=== PATIENT | female | born 1990 | race Caucasian/White ===

== ENCOUNTER 2016-12-23 19:55 | Emergency (ER) | payer BC, MEDICAID ==
[2016-12-23 20:26] LABS: UR Preg Internal Control QC Line Present
[2016-12-23 20:28] LABS: Urine Bacteria Absent (Absent); Urine Bilirubin Negative (Negative); Urine Glucose Negative (Negative); Urine Nitrite Negative (Negative)
[2016-12-23] MEDS ORDERED: NS 0.9% 1000 ML* 2,000 ML IV ONE (21:11)
[2016-12-23] MEDS ORDERED: LORazepam INJ* 2 MG/ML 1 ML VIAL IV PUSH ONE (21:12)
[2016-12-23 22:01] LABS: Hematocrit 49 % (35-47); Hemoglobin 17.1 g/dl (12.0-16.0); Mean Corpuscular HGB Conc 35 g/dl (31-36); Mean Corpuscular Hemoglobin 32 pg (27-31); Mean Corpuscular Volume 92 fL (80-97); Mean Platelet Volume 9 um3 (7.4-10.4); Red Blood Count 5.36 10^6/ul (4.0-5.4); Red Cell Distribution Width 13 % (10.5-15); White Blood Count 12.9 10^3/ul (3.5-10.8)
[2016-12-23 22:17] LABS: ALT 10 U/L (7-52); AST 15 U/L (13-39); Albumin 4.5 g/dL (3.2-5.2); Alkaline Phosphatase 45 U/L (34-104); Anion Gap 4 mmol/L (2-11); BUN/Creatinine Ratio 9.7 (8-20); Blood Urea Nitrogen 7 mg/dL (6-24); CO2 Carbon Dioxide 27 mmol/L (22-32); Calcium 9.7 mg/dL (8.6-10.3); Chloride 104 mmol/L (101-111); EGFR African American 125.9 (>60); EGFR Non-African American 97.9 (>60); Globulin 2.8 g/dL (2-4); Glucose 106 mg/dL (70-100); Potassium 3.2 mmol/L (3.5-5.0); Sodium 135 mmol/L (133-145); Total Protein 7.3 g/dL (6.4-8.9)
[2016-12-23 22:59] VITALS: BP 108/61
--- NOTE | 2016-12-24 00:24 | ED ---
Psychiatric Complaint - HPI Summary HPI Summary: Patient presents to ED after experiencing hyperventilation symptoms from an anxiety attack a few hours ago. She states she began to think about becoming dehydrated d/t a recent illness and passing out as she did 10 years ago. D/t this she had an anxiety attack and felt like she was unable to breathe. On arrival, she is stable but tearful for fear this will happen again. She denies an official diagnosis of anxiety and takes no medications. She is requesting for fluid replacement d/t her recent viral illness which caused some N/V. Otherwise, does not want medications as she is afraid of them. Denies other significant health history. - History Of Current Complaint Chief Complaint: EDNauseaVomitDiarrh Time Seen by Provider: 12/23/16 20:28 Hx Obtained From: Patient ?: No Onset/Duration: Sudden Onset Timing: Minutes Severity Initially: Severe Severity Currently: None Character: Anxious Alleviating Factor(s): Nothing Associated Signs And Symptoms: Positive: Appetite Change, Social Withdrawal, Social Isolation Related History: Positive For: Prior Psychiatric Issues - Risk Factor(s) Completed Suicide Risk Factors: White [place] - Allergies/Home Medications Allergies/Adverse Reactions: Allergies Allergy/AdvReac Type Severity Reaction Status Date / Time No Known Allergies Allergy Verified 12/23/16 20:13 PMH/Surg Hx/FS Hx/Imm Hx Previously Healthy: Yes Endocrine/Hematology History: Reports: Hx Thyroid Disease - elevated TSH, no meds Infectious Disease History: No Infectious Disease History: Denies: Traveled Outside the [place] in Last 30 Days - Social History Occupation: Employed Full-time Lives: With Family Alcohol Use: None Hx Substance Use: No Substance Use Type: Reports: None Hx Tobacco Use: Yes Smoking Status (MU): Light Every Day Tobacco Smoker Type: Cigarettes Review of Systems Constitutional: Negative ENT: Negative Cardiovascular: Negative Positive: Shortness Of Breath - only during hyperventilation Positive: no symptoms reported, see HPI Musculoskeletal: Negative Skin: Negative Neurological: Negative Positive: Anxious All Other Systems Reviewed And Are Negative: Yes Physical Exam Triage Information Reviewed: Yes Vital Signs On Initial Exam: Initial Vitals Temp Pulse Resp BP Pulse Ox 98.4 F 99 16 133/82 100 12/23/16 20:01 12/23/16 20:01 12/23/16 20:01 12/23/16 20:01 12/23/16 20:01 Vital Signs Reviewed: Yes Appearance: Positive: Well-Appearing, Well-Nourished Skin: Positive: Warm, Skin Color Reflects Adequate Perfusion Head/Face: Positive: Normal Head/Face Inspection Eyes: Positive: EOMI, Conjunctiva Clear Dental: Positive: Abscess @ Neck: Positive: Nontender Respiratory/Lung Sounds: Positive: Clear to Auscultation, Breath Sounds Present Cardiovascular: Positive: RRR Musculoskeletal: Positive: Normal, Strength/ROM Intact Neurological: Positive: Sensory/Motor Intact, Alert, Oriented to Person Place, Time Psychiatric: Positive: Normal AVPU Assessment: Alert - [place] Coma Scale Coma Scale Total: 15 Diagnostics - Vital Signs Vital Signs Temp Pulse Resp BP Pulse Ox 12/23/16 22:58 98 F 82 16 108/61 98 12/23/16 21:49 20 12/23/16 20:01 98.4 F 99 16 133/82 100 - Laboratory Lab Results: Lab Results 12/23/16 12/23/16 12/23/16 Range/Units 20:12 20:12 21:50 WBC (3.5-10.8) 10^3/ul RBC (4.0-5.4) 10^6/ul Hgb (12.0-16.0) g/dl Hct (35-47) % MCV (80-97) fL MCH (27-31) pg MCHC (31-36) g/dl RDW (10.5-15) % Plt Count (150-450) 10^3/ul MPV (7.4-10.4) um3 Neut % (Auto) (38-83) % Lymph % (Auto) (25-47) % Benson % (Auto) (1-9) % Eos % (Auto) (0-6) % Baso % (Auto) (0-2) % Absolute Neuts (auto) (1.5-7.7) 10^3/ul Absolute Lymphs (auto) (1.0-4.8) 10^3/ul Absolute Monos (auto) (0-0.8) 10^3/ul Absolute Eos (auto) (0-0.6) 10^3/ul Absolute Basos (auto) (0-0.2) 10^3/ul Absolute Nucleated RBC 10^3/ul Nucleated RBC % Sodium 135 (133-145) mmol/L Potassium 3.2 L (3.5-5.0) mmol/L Chloride 104 (101-111) mmol/L Carbon Dioxide 27 (22-32) mmol/L Anion Gap 4 (2-11) mmol/L BUN 7 (6-24) mg/dL Creatinine 0.72 (0.51-0.95) mg/dL Est GFR ( Amer) 125.9 (>60) Est GFR (Non-Af Amer) 97.9 (>60) BUN/Creatinine Ratio 9.7 (8-20) Glucose 106 H (70-100) mg/dL Calcium 9.7 (8.6-10.3) mg/dL Total Bilirubin 0.50 (0.2-1.0) mg/dL AST 15 (13-39) U/L ALT 10 (7-52) U/L Alkaline Phosphatase 45 (34-104) U/L Total Protein 7.3 (6.4-8.9) g/dL Albumin 4.5 (3.2-5.2) g/dL Globulin 2.8 (2-4) g/dL Albumin/Globulin Ratio 1.6 (1-3) Beta HCG, Quant < 0.60 mIU/mL Urine Color Colorless Urine Appearance Clear Urine pH 7.0 (5-9) Ur Specific [place] 1.001 L (1.010-1.030) Urine Protein Negative (Negative) Urine Ketones Negative (Negative) Urine Blood 1+ H (Negative) Urine Nitrate Negative (Negative) Urine Bilirubin Negative (Negative) Urine Urobilinogen Negative (Negative) Ur Leukocyte Esterase Negative (Negative) Urine WBC (Auto) Trace(0-5/hpf) (Absent) Urine RBC (Auto) Trace(0-2/hpf) (Absent) Urine Bacteria Absent (Absent) Urine Glucose Negative (Negative) Urine Test Negative (Negative) 12/23/16 Range/Units 21:50 WBC 12.9 H (3.5-10.8) 10^3/ul RBC 5.36 (4.0-5.4) 10^6/ul Hgb 17.1 H (12.0-16.0) g/dl Hct 49 H (35-47) % MCV 92 (80-97) fL MCH 32 H (27-31) pg MCHC 35 (31-36) g/dl RDW 13 (10.5-15) % Plt Count 203 (150-450) 10^3/ul MPV 9 (7.4-10.4) um3 Neut % (Auto) 81.7 (38-83) % Lymph % (Auto) 13.0 L (25-47) % Benson % (Auto) 4.8 (1-9) % Eos % (Auto) 0.2 (0-6) % Baso % (Auto) 0.3 (0-2) % Absolute Neuts (auto) 10.5 H (1.5-7.7) 10^3/ul Absolute Lymphs (auto) 1.7 (1.0-4.8) 10^3/ul Absolute Monos (auto) 0.6 (0-0.8) 10^3/ul Absolute Eos (auto) 0 (0-0.6) 10^3/ul Absolute Basos (auto) 0 (0-0.2) 10^3/ul Absolute Nucleated RBC 0.01 10^3/ul Nucleated RBC % 0 Sodium (133-145) mmol/L Potassium (3.5-5.0) mmol/L Chloride (101-111) mmol/L Carbon Dioxide (22-32) mmol/L Anion Gap (2-11) mmol/L BUN (6-24) mg/dL Creatinine (0.51-0.95) mg/dL Est GFR ( Amer) (>60) Est GFR (Non-Af Amer) (>60) BUN/Creatinine Ratio (8-20) Glucose (70-100) mg/dL Calcium (8.6-10.3) mg/dL Total Bilirubin (0.2-1.0) mg/dL AST (13-39) U/L ALT (7-52) U/L Alkaline Phosphatase (34-104) U/L Total Protein (6.4-8.9) g/dL Albumin (3.2-5.2) g/dL Globulin (2-4) g/dL Albumin/Globulin Ratio (1-3) Beta HCG, Quant mIU/mL Urine Color Urine Appearance Urine pH (5-9) Ur Specific [place] (1.010-1.030) Urine Protein (Negative) Urine Ketones (Negative) Urine Blood (Negative) Urine Nitrate (Negative) Urine Bilirubin (Negative) Urine Urobilinogen (Negative) Ur Leukocyte Esterase (Negative) Urine WBC (Auto) (Absent) Urine RBC (Auto) (Absent) Urine Bacteria (Absent) Urine Glucose (Negative) Urine Test (Negative) Result Diagrams: 12/23/16 21:50 12/23/16 21:50 Lab Statement: Any lab studies that have been ordered have been reviewed, and results considered in the medical decision making process. Course/Dx - Course Course Of Treatment: Sobbing upon arrival d/t social anxiety. Patient encouraged to take the ativan to relieve anxiety. Patient agrees. Patient improved after medication. Patient given fluids and labs WNL. Patient OK for discharge with ativan rx. Will follow up with PCP. - Differential Dx/Clinical Impression Differential Diagnosis/HQI/PQRI: Positive: Anxiety, Depression, Other - hyperventilation, social anxiety Provider Diagnosis: Anxiety, Hyperventilating Discharge - Discharge Plan Condition: Stable Disposition: HOME Prescriptions: Lorazepam [Ativan 1 MG TAB] 1 mg PO Q6H #12 tab MDD 4 Patient Education Materials: Hyperventilation (ED), Anxiety (ED) Referrals: Non Staff,Doctor [Primary Care Provider] - Additional Instructions: Follow up with your PCP regarding anxiety symptoms Drink plenty of fluids. Supplement with gatorade if you feel you are unable to drink enough fluids. Introduce foods back into your diet such as crackers, soups, breads and rice. Come back to ED for worsening anxiety.
== END 2016-12-23 23:39 | disposition home or self-care (01) ==
LOC: ED 19:55
DX: F41.9 Anxiety disorder, unspecified (principal); R06.4 Hyperventilation; F17.210 Nicotine dependence, cigarettes, uncomplicated
CPT/HCPCS: 36415; 80053; 81003; 81015; 81025; 84702; 85025; 96374; 99283; J2060

== ENCOUNTER 2019-07-14 09:12 | Emergency (ER) | payer MEDICAID, OTHER ==
[2019-07-14 09:28] VITALS: BP 127/79
--- NOTE | 2019-07-14 09:48 | UC ---
Cardiac HPI - HPI Summary HPI Summary: Chest pain with deep breathes and 'pressing' started yesterday. Was recently ill a few days ago w/ URI. Has had this before. denies sob, dizziness, calf pain. does not use control pills. - History of Current Complaint Chief Complaint: UCChestPain Stated Complaint: CHEST PAIN Time Seen by Provider: 07/14/19 09:16 Hx Obtained From: Patient Hx Last Menstrual Period: 07/11/19 Onset/Duration: Sudden Onset Pain Intensity: 6 Chest Pain Location: Lower Sternal Character: Sharp/Stabbing Aggravating Factor(s): Position, Deep Breaths Associated Signs & Symptoms: Positive: Cough - Allergy/Home Medications Allergies/Adverse Reactions: Allergies Allergy/AdvReac Type Severity Reaction Status Date / Time Opioids - Morphine Analogues Allergy Itching Verified 07/14/19 09:28 Home Medications: Home Medications NK [No Home Medications Reported] 07/14/19 [History Confirmed 07/14/19] PMH/Surg Hx/FS Hx/Imm Hx - Additional Past Medical History Additional PMH: chronic urticaria. Previously Healthy: Yes - Surgical History Surgical History: Yes Surgery Procedure, Year, and Place: csection x 2 - Social History Alcohol Use: Occasionally Substance Use Type: None Smoking Status (MU): Light Every Day Tobacco Smoker Type: Cigarettes - Immunization History Most Recent Influenza Vaccination: 07/08/14 Most Recent Tetanus Shot: 09/15/14 Most Recent Pneumonia Vaccination: none Review of Systems All Other Systems Reviewed And Are Negative: Yes Constitutional: Negative: Fever, Fatigue Respiratory: Positive: Cough. Negative: Shortness Of Breath Cardiovascular: Positive: Chest Pain Physical Exam Triage Information Reviewed: Yes Appearance: Well-Appearing Vital Signs: Initial Vital Signs Temp 98.4 F 07/14/19 09:20 Pulse 86 07/14/19 09:20 Resp 20 07/14/19 09:20 BP 127/79 07/14/19 09:20 Pulse Ox 98 07/14/19 09:20 Vital Signs Reviewed: Yes Neck: Positive: Supple Respiratory: Positive: Normal breath sounds, No respiratory distress, Other: - + reproducible tenderness at lower sternum Cardiovascular Exam: Normal Abdomen Description: Positive: Nontender, Soft Neurological: Positive: Alert, Other: - normal speech Diagnostics - EKG Cardiac Rate: NL Cardiac Rhythm: Sinus: Normal ST Segment: Normal - Assessment/Plan Course Of Treatment: Reproducible lwoer sternal tenderness after having URI. 2nd episode , has had before. Vitals are good and exam did show reproducibility. EKG was not concerning, reviewed w/ Dr. Barahona. nsaids for pain for the next 5-7 days. Increase fluids. Go to ED if worsening. - Differential Diagnoses - Chest Pain Differential Diagnosis/HQI/PQRI: Other: - Differential Diagnoses - Hypertension Differential Diagnosis/HQI PQRI: Other - Clinical Impression Provider Diagnosis: Chest wall tenderness Discharge ED - Sign-Out/Discharge Documenting (check all that apply): Patient Departure All imaging exams completed and their final reports reviewed: No Studies - Discharge Plan Condition: Good Disposition: HOME Patient Education Materials: Costochondritis (ED) Referrals: Alonso Gutiérrez MD [Primary Care Provider] - Additional Instructions: Use your ibuprofen at home to help with the inflammation - Billing Disposition and Condition Condition: GOOD Disposition: Home
== END 2019-07-14 09:40 | disposition home or self-care (01) ==
LOC: UCEAST 09:12
DX: R07.89 Other chest pain (principal); L50.8 Other urticaria; F17.210 Nicotine dependence, cigarettes, uncomplicated; R05 Cough; Z88.5 Allergy status to narcotic agent
CPT/HCPCS: 93005; 99211; G0463

== ENCOUNTER 2023-05-02 07:34 | Observation (INO) ==
[2023-05-02] MEDS ORDERED: cefTRIAXone 1 gm/50 mL D5W 1 GM/50 ML BAG IV ONE ×3 (08:03→12:01)
[2023-05-02] MEDS ORDERED: Ondansetron 4 mg VIAL 2 MG/ML 2 ml VIAL IV ONE ×2 (08:04→13:54)
[2023-05-02] MEDS ORDERED: Lactated Ringers 1000 ml BAG 1,000 ML IV ONE (08:05)
[2023-05-02 09:10] LABS: ABS Lymphocytes 1.3 10^3/uL (1.0-4.8); ABS Monocytes 0.5 10^3/uL (0.0-0.9); ABS Neutrophils 6.2 10^3/uL (1.5-7.6); ABS Nucleated RBC 0.01 10^3/ul; Eosinophil % 0.2 %; Hematocrit 44.8 % (35-45); Hemoglobin 15.7 g/dL (11.5-14.3); Mean Corpuscular Hemoglobin 34.6 pg (27-33); Mean Corpuscular Hgb Conc 35.1 g/dL (31-36); Mean Corpuscular Volume 98.6 fL (80-97); Mean Platelet Volume 8.1 fL (7.5-11.2); Nucleated Red Blood Cells % 0.1 /100 WBC (0.0-0.4); Platelet Count 199 10^3/uL (150-450); Red Blood Count 4.54 10^6/uL (3.63-4.92); Red Cell Distribution Width 13.5 % (12-17)
[2023-05-02 09:18] LABS: Urine Appearance Cloudy; Urine Bilirubin Negative (Negative); Urine Blood Negative (Negative); Urine Color Straw; Urine Glucose Negative (Negative); Urine Ketones Negative (Negative); Urine Nitrite Negative (Negative); Urine Protein Negative (Negative); Urine Specific Gravity 1.002 (1.002-1.030); Urine Urobilinogen Negative (Negative)
[2023-05-02 09:23] LABS: Urine Bacteria Absent (Absent); Urine Red Blood Cell Trace(0-2/hpf) (Absent); Urine Squamous Epithelial Cell Present (Absent); Urine White Blood Cell 1+(6-10/hpf) (Absent)
[2023-05-02 09:25] LABS: Albumin 4.3 g/dL (3.2-5.2); Albumin/Globulin Ratio 1.6 (1-3); C Reactive Protein 27.17 mg/L (<8.01); Calcium 9.3 mg/dL (8.6-10.3); Creatinine, Serum 0.78 mg/dL (0.51-0.95); Globulin 2.7 g/dL (2-4); Potassium 3.5 mmol/L (3.5-5.0); Total Bilirubin 0.6 mg/dL (0.2-1.0); eGFR CKD-EPI 103.4 (>60)
[2023-05-02] MEDS ORDERED: Iohexol 300 (CONTRAST) 10 ML SDV IV ONE (09:28)
[2023-05-02] MEDS ORDERED: cefTRIAXone 2 gm/50 mL D5W 2 GM/50 ML BAG IV ONE (11:00)
[2023-05-02] MEDS: Lactated Ringers 1000 ml BAG 1,000 ML IV ONE ×2 (11:47→12:36)
[2023-05-02] MEDS ORDERED: Nicotine PATCH 14 MG/24 HR PATCH TRANSDERM PRN (12:29)
[2023-05-02] MEDS ORDERED: Ondansetron 4 mg VIAL 2 MG/ML 2 ml VIAL IV PRN (13:57)
[2023-05-02] MEDS ORDERED: Prochlorperazine 5 mg/ml 2 ml VIAL (10 mg) IV PRN (13:58)
[2023-05-02] MEDS ORDERED: Enoxaparin 40 MG/0.4 ML SYR SUBCUT SCH (15:00)
[2023-05-02 15:44] LABS: Phosphorus 2.7 mg/dL (2.5-5.0)
[2023-05-02 17:39] VITALS: BP 124/77
[2023-05-03] MEDS ORDERED: cefTRIAXone 1 gm/50 mL D5W 1 GM/50 ML BAG IV SCH ×2 (11:00)
== END 2023-05-02 17:39 | disposition home or self-care (01) ==
LOC: EDHOLD 07:34 → ED 07:34 → MED 15:59 → EDHOLD 17:38
PROVIDERS: ADMIT Hospitalist; ATTEND Hospitalist